=== PATIENT | female | born 1945 | race Caucasian/White ===

== ENCOUNTER 2018-11-01 13:31 | Outpatient (REF) | payer MEDICARE, BC, SELFPAY ==
[2018-11-01 19:59] LABS: HCT 42.8 % (36.0-46.0); HGB 14.5 g/dL (12.0-15.5); Mean Corp. HGB Concentration 33.9 g/dL (32.0-36.0); Mean Corpuscular Hemoglobin 29.3 pg (27.0-33.0); Mean Corpuscular Volume 86.5 fL (80-95); Mean Platelet Volume 10.6 fL (8.0-11.0); Platelet Count 218 x1000/uL (130-400); RBC 4.95 m/cumm (4.00-5.20); White Blood Cell Count 5.29 k/cumm (4.4-10.8)
[2018-11-01 20:22] LABS: ALT 24 U/L (12-78); AST 18 U/L (15-37); Albumin 3.8 g/dL (3.4-5.0); Alkaline Phosphatase 101 U/L (46-116); Anion Gap 6.8 mmol/L (3-11); BUN 17 mg/dL (7-18); Bilirubin, Total 0.4 mg/dL (0.2-1.0); CO2 33.2 mmol/L (21.0-32.0); CREATININE 0.72 mg/dL (0.55-1.02); Calcium 9.5 mg/dL (8.5-10.1); Chloride 99 mmol/L (98-107); Glucose 102 mg/dL (70-100); LDL CHOLESTEROL 66 mg/dL (<100); Potassium 3.5 mmol/L (3.5-5.1); Sodium 139 mmol/L (136-145); TSH 1.02 uIU/mL (0.358-3.74); Total Protein 7.1 g/dL (6.4-8.2)
== END 2018-11-01 13:51 ==
LOC: NCHCN 13:31
PROVIDERS: PCP Internal Medicine; Visit Provider Internal Medicine
DX: I10 Essential (primary) hypertension (principal); G35 Multiple sclerosis
CPT/HCPCS: 80053; 83721; 85027; 84443

== ENCOUNTER 2019-09-21 14:51 | Outpatient (REF) | payer MEDICARE, BC, SELFPAY ==
[2019-09-21 20:26] LABS: HCT 41.9 % (36.0-46.0); HGB 14.1 g/dL (12.0-15.5); Mean Corp. HGB Concentration 33.7 g/dL (32.0-36.0); Mean Corpuscular Hemoglobin 29.4 pg (27.0-33.0); Mean Corpuscular Volume 87.3 fL (80-95); Mean Platelet Volume 10.6 fL (8.0-11.0); Platelet Count 269 x1000/uL (130-400); RBC Distribution Width 13.3 % (11.7-14.6); White Blood Cell Count 6.07 k/cumm (4.4-10.8)
[2019-09-21 20:46] LABS: Anion Gap 8.3 mmol/L (3-11); BUN 17 mg/dL (7-18); CO2 29.7 mmol/L (21.0-32.0); Calcium 8.8 mg/dL (8.5-10.1); Chloride 101 mmol/L (98-107); Glucose 133 mg/dL (74-106); Potassium 3.5 mmol/L (3.5-5.1); Sodium 139 mmol/L (136-145); TSH 1.04 uIU/mL (0.36-3.74)
[2019-09-21 20:57] LABS: LDL CHOLESTEROL 70 mg/dL (<100)
== END 2019-09-21 15:11 ==
LOC: NCHCN 14:51
PROVIDERS: PCP Internal Medicine; Visit Provider Internal Medicine
DX: I10 Essential (primary) hypertension (principal); F17.210 Nicotine dependence, cigarettes, uncomplicated; J44.9 Chronic obstructive pulmonary disease, unspecified; G35 Multiple sclerosis
CPT/HCPCS: 80048; 83721; 85027; 84443

== ENCOUNTER 2021-03-28 18:53 | Outpatient (REF) | payer MEDICARE, BC, SELFPAY ==
[2021-03-28 18:53] LABS: ALT 17 U/L (14-59); Anion Gap 9.6 mmol/L (3-11); BUN 10 mg/dL (7-18); CO2 28.4 mmol/L (21.0-32.0); CREATININE 0.7 mg/dL (0.55-1.02); Calcium 9.4 mg/dL (8.5-10.1); Chloride 100 mmol/L (98-107); Glucose 97 mg/dL (74-106); LDL CHOLESTEROL 59 mg/dL (<100); Sodium 138 mmol/L (136-145)
[2021-03-28 19:14] LABS: HCT 42.2 % (36.0-46.0); HGB 14.2 g/dL (11.2-15.7); MCH 29.3 pg (27.0-33.0); MCHC 33.6 % (32.0-36.0); MPV 10.4 fL (8.0-11.0); Platelet Count 330 10^3/uL (130-400); RBC 4.85 10^6/uL (3.93-5.22); RDW 12.6 % (11.7-14.6); RDW-SD 40.4 fL
== END 2021-03-28 18:54 | disposition home or self-care (01) ==
LOC: NCHCN 18:53
PROVIDERS: PCP Internal Medicine; Visit Provider Internal Medicine
DX: I10 Essential (primary) hypertension (principal); R53.83 Other fatigue; E78.5 Hyperlipidemia, unspecified
CPT/HCPCS: 80048; 83721; 85027; 84460

== ENCOUNTER 2022-03-03 18:07 | Outpatient (REF) | payer MEDICARE, BC, SELFPAY ==
[2022-03-03 19:25] LABS: Bilirubin Negative (Negative); Blood Moderate (Negative); Clarity Sl Cloudy (Clear); Glucose Negative (Negative); Ketones Negative (Negative); Leukocyte Esterase Small (Negative); Nitrite Negative (Negative); Specific Gravity >= 1.030 (1.005-1.025); Urobilinogen 0.2 EU/dL (Up TO 0.2); pH 5.5 (5-8)
[2022-03-03 19:32] LABS: Bacteria Moderate HPF (Negative); C & S Indicated? Yes; Casts Negative LPF (Negative); Crystals Negative HPF (Negative); Epithelial Cells Rare HPF (Negative); Mucus Negative (Negative); Other Cells Rare Renal (Negative); WBC 20-50 HPF (0-5)
== END 2022-03-03 18:08 | disposition home or self-care (01) ==
LOC: NCHCN 18:07
PROVIDERS: PCP Internal Medicine; Visit Provider Nurse Practitioner Family
DX: R30.0 Dysuria (principal)
CPT/HCPCS: 87077; 81003; 81015; 87086; 87186

== ENCOUNTER 2022-10-15 18:37 | Outpatient (REF) | payer MEDICARE, BC, SELFPAY ==
[2022-10-15 20:16] LABS: ALT 19 U/L (14-59); Anion Gap 7.6 mmol/L (3-11); BUN 23 mg/dL (7-18); CO2 28.4 mmol/L (21.0-32.0); CREATININE 0.8 mg/dL (0.55-1.02); Calcium 9.4 mg/dL (8.5-10.1); Calculated LDL 41 mg/dL (<100); Chloride 104 mmol/L (98-107); Cholesterol 125 mg/dL (<200); Estimated GFR 75.84 (mL/min/1.73m2); Glucose 122 mg/dL (74-106); HDL Cholesterol 51 mg/dL (40-60); Potassium 3.8 mmol/L (3.5-5.1); Sodium 140 mmol/L (136-145); TSH 1.14 uIU/mL (0.36-3.74); Triglyceride 167 mg/dL (<150)
[2022-10-15 20:47] LABS: Creatine Kinase 141 U/L (26-192)
== END 2022-10-15 18:38 | disposition home or self-care (01) ==
LOC: NCHCN 18:37
PROVIDERS: PCP Internal Medicine; Visit Provider Internal Medicine
DX: I10 Essential (primary) hypertension (principal); E78.5 Hyperlipidemia, unspecified
CPT/HCPCS: 80048; 80061; 82550; 84443; 84460

== ENCOUNTER 2023-09-28 18:30 | Outpatient (REF) | payer MEDICARE, BC, SELFPAY ==
[2023-09-28 19:34] LABS: HCT 47.1 % (36.0-46.0); HGB 16.4 g/dL (11.2-15.7); MCH 29.3 pg (27.0-33.0); MCHC 34.8 % (32.0-36.0); MCV 84 fL (80-95); MPV 9.7 fL (8.0-11.0); Platelet Count 587 10^3/uL (130-400); RBC 5.59 10^6/uL (3.93-5.22); RDW-SD 39.8 fL; WBC 14.33 10^3/uL (4.4-10.8)
[2023-09-28 20:04] LABS: ALT 30 U/L (14-59); AST 16 U/L (15-37); Albumin 3.8 g/dL (3.4-5.0); Alkaline Phosphatase 119 U/L (46-116); Anion Gap 9.9 mmol/L (3-11); BUN 31 mg/dL (7-18); Bilirubin, Total 0.6 mg/dL (0.2-1.0); CO2 26.1 mmol/L (21.0-32.0); Calcium 9.8 mg/dL (8.5-10.1); Calculated LDL 42 mg/dL (<100); Chloride 99 mmol/L (98-107); Cholesterol 121 mg/dL (<200); Estimated GFR 57.66 (mL/min/1.73m2); Glucose 149 mg/dL (74-106); HDL Cholesterol 50 mg/dL (40-60); Potassium 4.4 mmol/L (3.5-5.1); Sodium 135 mmol/L (136-145); Total Protein 7.5 g/dL (6.4-8.2); Triglyceride 146 mg/dL (<150)
== END 2023-09-28 18:31 | disposition home or self-care (01) ==
LOC: NCHCN 18:30
PROVIDERS: PCP Internal Medicine; Visit Provider Internal Medicine
DX: E78.5 Hyperlipidemia, unspecified (principal); J10.08 Influenza due to other identified influenza virus with other specified pneumonia
CPT/HCPCS: 80053; 80061; 85027

== ENCOUNTER 2023-12-18 07:40 | Day surgery (SDC) | payer MEDICARE, BC, SELFPAY ==
--- NOTE | 2023-12-18 06:30 | ANES.PREOP_ITS ---
General Info Date of Service Date Performed: 12/18/23 Height: 4 ft 11 in Weight: 70.307 kg Body Mass Index (BMI): 31.3 Surgical Procedure: Operation Date: 12/18/23 10:40 Proposed Procedure Side Surgeon p Cataract Extraction with IOL Implant Right Jg Galaviz MD Meds Allergies and Home Medications Allergies Allergy/AdvReac Type Severity Reaction Status Date / Time nickel Allergy Unknown Other (See Uncoded 12/18/23 08:25 Comment) Home Medication Medication Instructions Recorded albuterol sulfate 90 mcg/actuation 1 inh inhalation Q4H PRN 12/15/23 aerosol inhaler aspirin 81 mg capsule 81 mg PO DAILY 12/15/23 atorvastatin 80 mg tablet 80 mg PO DAILY 12/15/23 diltiazem HCl 120 mg 120 mg PO DAILY 12/15/23 capsule,extended release 24 hr hydrochlorothiazide 12.5 mg tablet 12.5 mg PO DAILY 12/15/23 losartan 50 mg tablet 50 mg PO DAILY 12/15/23 nystatin 100,000 unit/gram topical 1 applic topical TID 12/15/23 ointment ofloxacin 0.3 % eye drops 1 drp ophthalmic (eye) QID 12/15/23 umeclidinium 62.5 mcg-vilanterol 1 inh inhalation DAILY 12/15/23 25 mcg/actuation powdr for inhalation (Anoro Ellipta) Current Visit Medications: Current Medications Generic Name Dose Route Start Last Admin Trade Name Freq PRN Reason Stop Dose Admin Acetaminophen 1,000 mg 12/18/23 06:00 Acetaminophen 500 Mg Tab PO 01/17/24 05:59 Q4H PRN PRN Balanced Salt Solution 500 ml 12/18/23 06:00 Balanced Salt Soln.-Plus 500 Ml Bag OP 01/17/24 05:59 DIRECTED MILADY Miscellaneous Medication 0 ml 12/18/23 06:00 Prednisolone 1%, Moxifloxacin 0.5%, Bromfenac 0.09% 5ml Btl OD 01/17/24 05:59 DIRECTED MILADY Miscellaneous Medication 0 ml 12/18/23 06:00 Tropicam./Phenyleph. 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 states in September she had COVID, has appointment 02/2024 for ECHO Cough Fatigue Iliotibial band syndrome Low back pain Osteoarthritis of knee Actinic keratitis Pustular psoriasis of palms and soles Urinary tract infectious disease COPD (chronic obstructive pulmonary disease) Aortic stenosis Essential hypertension Multiple sclerosis Obesity Hyperlipidemia Disorder of adrenal gland Benign neoplasm of colon Basal cell carcinoma Surgical History Surgical History History of colonoscopy Tobacco Smoking/Tobacco Use Status: Former Tobacco Use Alcohol Alcohol Intake: never Substance Use Substance use: Never Substance use type: does not use Vital Signs and Lab Results Vital Signs Most Recent Vital Signs in EMR: Temp Pulse Resp BP Pulse Ox 36.5 C 73 16 169/86 H 96 12/18/23 08:11 12/18/23 08:11 12/18/23 08:11 12/18/23 08:11 12/18/23 08:11 Lab Results Blood Type / Crossmatch: No Data to Display Complete Blood Count: No Data to Display Complete Metabolic Panel: No Data to Display Liver Function Panel: No Data to Display Coagulation Panel: No Data to Display Cardiac Panel: No Data to Display Arterial Blood Gas: No Data to Display Venous Blood Gas: No Data to Display Pancreas Panel: No Data to Display Thyroid Panel: No Data to Display Infectious Disease: No Data to Display Blood Cultures: No Data to Display Toxicology Panel: No Data to Display Imaging and Studies Imaging and Studies Study information below may be from another EMR and interpreted by another provider. Please see original notes in EMR for more complete details. Stress Test Summary: 01/25: normal. no defects. EF 55%. Echocardiogram Summary: 10/03: LVEF 70%. severe basal septal hypertrophy, dynamic LVOT peak gradient 101 mmhg, anterior motion of MC with obstruction.. moderate MR. grade II diastolic dysfxn. Anesthesia Assessment and Plan Anesthesia History Personal History: No History of Anesthesia Complications Family History: No Family History of Anesthesia Complications Exercise Tolerance Exercise Tolerance: Metabolic Equivalents>4 Cardiac & Pulmonary Exam Cardiac Exam: Heart Murmur Present Pulmonary Exam: Clear Bilateral Breath Sounds Implantable Cardiac Device Does patient have a Pacemaker or an ICD?: No Airway Exam Known Difficult Airway: No Mallampati Class: 3 Mouth Opening: Normal (> 3cm) Thyromental Distance: Greater than 3 cm Neck Range of Motion: Full ROM Neck Circumference: Normal Teeth Condition: Normal Dentition ASA Classification ASA Score: ASA 3 Emergency Case?: No NPO Status NPO Status: NPO Clears >2 hours, Solids >8 hours Anesthesia Plan Resuscitation Status: Full Code Anesthesia Technique: MAC Anesthesia Airway Planned: Natural Airway Monitors Used: Standard Monitors Preoperative Comments:: 77 yo female for cataract removal. No MKO given her cardiac history. Sig PMHx: HTN, chest pain (with both exertion and rest, she is being followed. ? due to her LVOT. no intervention being planned at this time), COPD, former smoker, MS
[2023-12-18 08:11] VITALS: BP 169/86; PULSE 73; RESP 16; TEMP 36.5; O2SAT 96
[2023-12-18 08:45] VITALS: BMI 31.3
[2023-12-18] MEDS: Tetracaine 0.5% 4 ML BTL OD (09:38)
[2023-12-18] MEDS: Povidone-Iodine Ophth 30 ML BTL (09:38)
[2023-12-18] MEDS: Balanced Salt Soln.-PLUS 500 ML BAG OP (09:47)
[2023-12-18] MEDS: Duovisc Viscoelastic System EACH 1 EACH (09:47)
[2023-12-18] MEDS: Lidocaine 1% Pres-Free 5 ML VIAL (09:48)
--- NOTE | 2023-12-18 10:08 | ROE_ITS ---
Date of service: 12/18/23 Time of Service: 10:08 Operative Note Operative Note DATE OF PROCEDURE: 12/18/23 PRE-OP DIAGNOSIS: Nuclear/cortical cataract, right eye POST-OP DIAGNOSIS: same PROCEDURE: Cataract extraction using phacoemulsification with intraocular lens implant, right eye SURGEON: Jg Galaviz ANESTHESIA TYPE: Local By Surgeon and MAC Refer to Anesthesia Record ESTIMATED BLOOD LOSS: 0 PATHOLOGY: none sent COMPLICATIONS: None Patient was transported to: same day Patient's condition: stable Implants: William Clareon [id number] Indications: Progressive decreased vision due to cataract, right eye Procedure Description: CATARACT SURGERY OPERATIVE REPORT PREOPERATIVE DIAGNOSIS: Nuclear/cortical cataract, right eye POSTOPERATIVE DIAGNOSIS: Same OPERATION: Cataract extraction using phacoemulsification with posterior chamber intraocular lens implant, right eye. IOL: IOL Pricing/Signage Team Member/Model: William Clareon [id number] IOL Power: + 19.5 diopters IOL Serial Number: [id number] Optic Diameter: 6.0mm Haptic/Overall Diameter: 13.0mm PHACO INFO: WilliamLeverurion Vision System with OZil and Active Fluidics Cumulative Dispersed Energy (CDE): 7.14 seconds SURGEON: Jg Galaviz MD, VIPUL ANESTHESIA: Monitored Anesthesia Care (MAC), with local sub-tenon's anesthetic infiltration COMPLICATIONS: None SPECIMENS: None INDICATIONS FOR PROCEDURE: The patient is a 77-year-old lady with history of diminished visual acuity in her right eye secondary to the development of significant nuclear/cortical cataract. She is significantly symptomatic that she desires cataract surgery and attempt to improve and maximize her vision. The option of cataract surgery was offered to the patient and she wished to proceed. See office notes for detailed information. PROCEDURE: The correct surgical eye was identified and marked as the right eye and the pupil was dilated in the preoperative area using mydriatics and cycloplegics. The dilated pupil size was 6.0 mm. The patient elected to proceed without oral sedation. The patient was brought to the operating room where cardiopulmonary monitoring was instituted and surgical time-out was performed, confirming the correct operative eye and IOL power. Topical anesthesia was administered and ophthalmic povidone-iodine 5% was instilled into the conjunctival fornices. The matt-ocular area was prepped with Betadine 10% solution and draped in the usual sterile fashion for intraocular surgery, including an aperture drape. A Tegaderm transparent film dressing was cut in half and used to cover the lashes and lid margins. Care was taken to sequester the lashes and lid margins under the Tegaderm dressing. A lid speculum was placed between the lids of the operative eye and the William LuxOR Revalia operating microscope was maneuvered into position. Chris scissors were then used to make a conjunctival buttonhole approximately 6mm posterior to the limbus in the inferonasal quadrant. Blunt dissection was carried out to expose bare sclera, and a blunt-tipped sub-tenon?s anesthesia cannula was introduced and passed posteriorly along the globe where non- preserved plain lidocaine was injected into posterior sub-Tenon?s space. A sideport knife was used to make a paracentesis port. Intraocular phenylephrine/lidocaine was injected into the anterior chamber. The anterior chamber was then filled with viscoelastic. A keratome knife was used to construct a two--plane clear corneal tunnel extending 2.0mm into clear cornea. A flap was raised on the anterior capsule and capsulorhexis forceps were used to complete a continuous curvilinear capsulorhexis of 5.5 mm. Balanced salt solution was then used to perform cortical cleaving hydrodissection and nuclear hydrodelineation until the lens could be freely rotated within the capsular bag. The lens nucleus was then disassembled and removed within the capsular bag and iris plane using phacoemulsification. Residual cortical material was removed using the I/A handpiece. The posterior capsule was carefully polished to remove as much residual lens epithelial cells as safely possible. The capsular bag was then inflated and the anterior chamber deepened with cohesive viscoelastic. The lens implant described above was inserted into the capsular bag using the William Autonome Injector. A Kuglen hook was used to dial the IOL into position. Residual viscoelastic was then removed first from posterior to the IOL, then from the anterior chamber using the I/A handpiece. The lens implant was noted to center nicely within the capsular bag. The incisions were stromally hydrated, and the anterior chamber was reformed using BSS. Then 0.5cc of moxifloxacin 1.0mg/ml were injected into the capsular bag and anterior chamber. The incisions were checked with a Weck spear and found to be secure. Several drops of ophthalmic povidone-iodine 5% were then applied to the eye followed by two drops of combination steroid/NSAID/antibiotic solution. The drapes were removed and a clear plastic protective eye shield was placed over the eye. The patient was then returned to [facility] Surgery in stable condition.
--- NOTE | 2023-12-18 10:08 | W.PM.DSUDISC ---
Date of service: 12/18/23 Time of Service: 10:08 Discharge Plan Disposition Patient Disposition: Home Discharge Details Attending Provider: Jg Galaviz Primary Care Provider: Armando Villafana Home Meds and New Rx's Prescriptions: No Action albuterol sulfate 90 mcg/actuation HFA aerosol inhaler 1 inh inhalation Q4H PRN Anoro Ellipta 62.5-25 mcg/actuation blister with device 1 inh inhalation DAILY aspirin 81 mg capsule 81 mg PO DAILY atorvastatin 80 mg tablet 80 mg PO DAILY Patient Comments: TAKE ONE TABLET BY MOUTH EVERY DAY diltiazem HCl 120 mg capsule,extended release 24hr 120 mg PO DAILY Patient Comments: TAKE ONE CAPSULE BY MOUTH EVERY DAY hydrochlorothiazide 12.5 mg tablet 12.5 mg PO DAILY Patient Comments: TAKE ONE TABLET BY MOUTH EVERY DAY losartan 50 mg tablet 50 mg PO DAILY Patient Comments: TAKE ONE TABLET BY MOUTH EVERY DAY nystatin 100,000 unit/gram ointment 1 applic TOPICAL TID Patient Comments: APPLY TOPICALLY 3 TIMES A DAY TO AFFECTED AREA ofloxacin 0.3 % drops 1 drp ophthalmic (eye) QID Patient Comments: INSTILL 1 DROP INTO AFFECTED EYE(S) 4 TIMES A DAY FOR 7 DAYS. NO EYERUBBING, NO CONTACT LENSES Discharge Instructions Stand Alone Forms: [facility] Post-Op CataractMandeep ([facility]U) Discharge Orders Discharge Orders: Discharge Order (Routine); Ordered 12/18/23 Ordered By: Jg Galaviz DS: Diagnosis Discharge Diagnosis (1) Cortical age-related cataract, right eye: Status: Resolved (2) Nuclear age-related cataract, right eye: Status: Resolved
[2023-12-18 10:10] VITALS: BP 139/80; PULSE 77; RESP 18; TEMP 36.6; O2SAT 97
--- NOTE | 2023-12-18 10:19 | W.ANESPOSTOP ---
Postoperative Evaluation Date, Time and Location Date Performed: 12/18/23 Time Performed: 10:19 Patient Location: Day Surgery Unit Vital Signs Most Recent Imported Vital Signs: Most Recent Vital Signs Temp Pulse Resp BP Pulse Ox 36.6 C 77 18 139/80 97 12/18/23 10:10 12/18/23 10:10 12/18/23 10:10 12/18/23 10:10 12/18/23 10:10 Pain Score Most Recent Pain Score: Most Recent Pain Score Pain Level 0 12/18/23 10:10 Assessment Mental Status: Awake (Alert & Oriented to Patient Baseline) Airway and Respiratory Function: Patent airway with normal (patient baseline) respiratory exam Cardiovascular Function: Hemodynamically Stable Hydration Status: Adequately Hydrated Nausea & Vomiting: No Nausea or Vomiting Pain: Pt. Denies Any Pain Peripheral Nerve Block: Patient did not receive a nerve block
== END 2023-12-18 10:33 | disposition home or self-care (01) ==
PROVIDERS: PCP Internal Medicine; Visit Provider Ophthalmology
PROC: (CPT 66984; principal; 2023-12-18 10:30)
DX: H25.011 Cortical age-related cataract, right eye (principal); H25.11 Age-related nuclear cataract, right eye; J44.9 Chronic obstructive pulmonary disease, unspecified; I10 Essential (primary) hypertension; R07.9 Chest pain, unspecified
CPT/HCPCS: 66984; 00123; V2632; J2003

== ENCOUNTER 2024-01-01 09:18 | Day surgery (SDC) | payer MEDICARE, BC, SELFPAY ==
[2024-01-01 09:58] VITALS: BP 139/71; PULSE 67; RESP 16; TEMP 36.5; O2SAT 96
--- NOTE | 2024-01-01 10:07 | ANES.PREOP_ITS ---
General Info Date of Service Date Performed: 01/01/24 Height: 5 ft Weight: 77.1 kg Body Mass Index (BMI): 33.2 Surgical Procedure: Operation Date: 01/01/24 12:40 Proposed Procedure Side Surgeon p Cataract Extraction with IOL Implant Left Jg Galaviz MD Meds Allergies and Home Medications Allergies Allergy/AdvReac Type Severity Reaction Status Date / Time nickel Allergy Unknown Other (See Uncoded 01/01/24 10:06 Comment) Home Medication Medication Instructions Recorded albuterol sulfate 90 mcg/actuation 1 inh inhalation Q4H PRN 12/15/23 aerosol inhaler aspirin 81 mg capsule 81 mg PO DAILY 12/15/23 atorvastatin 80 mg tablet 80 mg PO DAILY 12/15/23 diltiazem HCl 120 mg 120 mg PO HS 12/15/23 capsule,extended release 24 hr hydrochlorothiazide 12.5 mg tablet 12.5 mg PO DAILY 12/15/23 losartan 50 mg tablet 50 mg PO DAILY 12/15/23 nystatin 100,000 unit/gram topical 1 applic topical TID 12/15/23 ointment ofloxacin 0.3 % eye drops 1 drp ophthalmic (eye) QID 12/15/23 umeclidinium 62.5 mcg-vilanterol 1 inh inhalation DAILY 12/15/23 25 mcg/actuation powdr for inhalation (Anoro Ellipta) Current Visit Medications: Current Medications Generic Name Dose Route Start Last Admin Trade Name Freq PRN Reason Stop Dose Admin Acetaminophen 1,000 mg 01/01/24 06:00 Acetaminophen 500 Mg Tab PO 01/31/24 05:59 Q4H PRN PRN Balanced Salt Solution 500 ml 01/01/24 06:00 Balanced Salt Soln.-Plus 500 Ml Bag OP 01/31/24 05:59 DIRECTED MILADY Miscellaneous Medication 0 ml 01/01/24 06:00 Prednisolone 1%, Moxifloxacin 0.5%, Bromfenac 0.09% 5ml Btl OS 01/31/24 05:59 DIRECTED MILADY Miscellaneous Medication 0 ml 01/01/24 06:00 Tropicam./Phenyleph. 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 states in September she had COVID, has appointment 02/2024 for ECHO Cough Fatigue Iliotibial band syndrome Low back pain Osteoarthritis of knee Actinic keratitis Pustular psoriasis of palms and soles Urinary tract infectious disease COPD (chronic obstructive pulmonary disease) Aortic stenosis Essential hypertension Multiple sclerosis Obesity Hyperlipidemia Disorder of adrenal gland Benign neoplasm of colon Basal cell carcinoma Surgical History Surgical History History of colonoscopy Tobacco Smoking/Tobacco Use Status: Former Tobacco Use Alcohol Alcohol Intake: never Substance Use Substance use: Never Substance use type: does not use Vital Signs and Lab Results Vital Signs Most Recent Vital Signs in EMR: Most Recent Vital Signs Temp Pulse Resp BP Pulse Ox 36.5 C 67 16 139/71 96 01/01/24 09:58 01/01/24 09:58 01/01/24 09:58 01/01/24 09:58 01/01/24 09:58 Lab Results Blood Type / Crossmatch: No Data to Display Complete Blood Count: No Data to Display Complete Metabolic Panel: No Data to Display Liver Function Panel: No Data to Display Coagulation Panel: No Data to Display Cardiac Panel: No Data to Display Arterial Blood Gas: No Data to Display Venous Blood Gas: No Data to Display Pancreas Panel: No Data to Display Thyroid Panel: No Data to Display Infectious Disease: No Data to Display Blood Cultures: No Data to Display Toxicology Panel: No Data to Display Imaging and Studies Imaging and Studies Study information below may be from another EMR and interpreted by another provider. Please see original notes in EMR for more complete details. Stress Test Summary: 01/25: normal. no defects. EF 55%. Echocardiogram Summary: 10/03: LVEF 70%. severe basal septal hypertrophy, dynamic LVOT peak gradient 101 mmhg, anterior motion of MC with obstruction.. moderate MR. grade II diastolic dysfxn. Anesthesia Assessment and Plan Anesthesia History Personal History: No History of Anesthesia Complications Family History: No Family History of Anesthesia Complications Exercise Tolerance Exercise Tolerance: Metabolic Equivalents>4 Pertinent Negatives Pertinent Negatives: No Symptoms of GERD Cardiac & Pulmonary Exam Cardiac Exam: Normal S1/S2 Heart Sounds Pulmonary Exam: Clear Bilateral Breath Sounds Implantable Cardiac Device Does patient have a Pacemaker or an ICD?: No Airway Exam Known Difficult Airway: No Mallampati Class: 3 Mouth Opening: Normal (> 3cm) Thyromental Distance: Greater than 3 cm Neck Range of Motion: Full ROM Neck Circumference: Normal Teeth Condition: Normal Dentition ASA Classification ASA Score: ASA 3 Emergency Case?: No NPO Status NPO Status: NPO Clears >2 hours, Solids >8 hours Anesthesia Plan Resuscitation Status: Full Code Anesthesia Technique: MAC Anesthesia Airway Planned: Natural Airway Monitors Used: Standard Monitors
[2024-01-01 10:08] VITALS: BMI 33.2
[2024-01-01] MEDS: Duovisc Viscoelastic System EACH 1 EACH (11:42)
[2024-01-01] MEDS: Lidocaine 1% Pres-Free 5 ML VIAL (11:43)
[2024-01-01] MEDS: Povidone-Iodine Ophth 30 ML BTL (11:45)
[2024-01-01] MEDS: Balanced Salt Soln.-PLUS 500 ML BAG OP (11:46)
[2024-01-01] MEDS: Tetracaine 0.5% 4 ML BTL OS (11:48)
[2024-01-01 11:56] VITALS: BP 133/82; PULSE 67; RESP 16; TEMP 36.6; O2SAT 97
--- NOTE | 2024-01-01 11:56 | W.PM.DSUDISC ---
Date of service: 01/01/24 Time of Service: 11:56 Discharge Plan Disposition Patient Disposition: Home Discharge Details Attending Provider: Jg Galaviz Primary Care Provider: Armando Villafana Home Meds and New Rx's Prescriptions: No Action albuterol sulfate 90 mcg/actuation HFA aerosol inhaler 1 inh inhalation Q4H PRN Anoro Ellipta 62.5-25 mcg/actuation blister with device 1 inh inhalation DAILY aspirin 81 mg capsule 81 mg PO DAILY atorvastatin 80 mg tablet 80 mg PO DAILY Patient Comments: TAKE ONE TABLET BY MOUTH EVERY DAY diltiazem HCl 120 mg capsule,extended release 24hr 120 mg PO HS Patient Comments: TAKE ONE CAPSULE BY MOUTH EVERY DAY hydrochlorothiazide 12.5 mg tablet 12.5 mg PO DAILY Patient Comments: TAKE ONE TABLET BY MOUTH EVERY DAY losartan 50 mg tablet 50 mg PO DAILY Patient Comments: TAKE ONE TABLET BY MOUTH EVERY DAY nystatin 100,000 unit/gram ointment 1 applic TOPICAL TID Patient Comments: APPLY TOPICALLY 3 TIMES A DAY TO AFFECTED AREA ofloxacin 0.3 % drops 1 drp ophthalmic (eye) QID Patient Comments: INSTILL 1 DROP INTO AFFECTED EYE(S) 4 TIMES A DAY FOR 7 DAYS. NO EYERUBBING, NO CONTACT LENSES Discharge Instructions Stand Alone Forms: [facility] Post-Op CataractMandeep ([facility]U) Discharge Orders Discharge Orders: Discharge Order (Routine); Ordered 01/01/24 Ordered By: Jg Galaviz DS: Diagnosis Discharge Diagnosis (1) Cortical age-related cataract, left eye: Status: Resolved (2) Nuclear age-related cataract, left eye: Status: Resolved
--- NOTE | 2024-01-01 11:57 | ROE_ITS ---
Date of service: 01/01/24 Time of Service: 11:57 Operative Note Operative Note DATE OF PROCEDURE: 01/01/24 PRE-OP DIAGNOSIS: Nuclear/cortical cataract, left eye POST-OP DIAGNOSIS: same PROCEDURE: Cataract extraction using phacoemulsification with intraocular lens implant, left eye SURGEON: Jg Galaviz ANESTHESIA TYPE: Local By Surgeon and MAC Refer to Anesthesia Record PATHOLOGY: none sent COMPLICATIONS: None Patient was transported to: same day Patient's condition: stable Implants: William Clareon [id number] Indications: Progressive decreased vision due to cataract, left eye Procedure Description: CATARACT SURGERY OPERATIVE REPORT PREOPERATIVE DIAGNOSIS: Nuclear/cortical cataract, left eye POSTOPERATIVE DIAGNOSIS: Same OPERATION: Cataract extraction using phacoemulsification with posterior chamber intraocular lens implant, left eye. IOL: IOL Cataloging Assistant/Model: William Clareon [id number] IOL Power: + 19.0 diopters IOL Serial Number: [id number] Optic Diameter: 6.0mm Haptic/Overall Diameter: 13.0mm PHACO INFO: [employer] developersurion Vision System with OZil and Active [employer]uidics Cumulative Dispersed Energy (CDE): 10.71 seconds SURGEON: Jg Galaviz MD, VIPUL ANESTHESIA: Monitored Anesthesia Care (MAC), with local sub-tenon's anesthetic infiltration COMPLICATIONS: None SPECIMENS: None INDICATIONS FOR PROCEDURE: The patient is a 78-year-old lady with history of diminished visual acuity in her left eye secondary to the development of nuclear/cortical cataract. She has previously undergone cataract surgery in her right eye and is doing well postoperatively. She now presents for cataract surgery in the left eye. See office notes for detailed information. PROCEDURE: The correct surgical eye was identified and marked as the left eye and the pupil was dilated in the preoperative area using mydriatics and cycloplegics. The dilated pupil size was 7.0 mm. The patient elected to proceed without oral sedation. The patient was brought to the operating room where cardiopulmonary monitoring was instituted and surgical time-out was performed, confirming the correct operative eye and IOL power. Topical anesthesia was administered and ophthalmic povidone-iodine 5% was instilled into the conjunctival fornices. The matt-ocular area was prepped with Betadine 10% solution and draped in the usual sterile fashion for intraocular surgery, including an aperture drape. A Tegaderm transparent film dressing was cut in half and used to cover the lashes and lid margins. Care was taken to sequester the lashes and lid margins under the Tegaderm dressing. A lid speculum was placed between the lids of the operative eye and the William LuxOR Revalia operating microscope was maneuvered into position. Chris scissors were then used to make a conjunctival buttonhole approximately 6mm posterior to the limbus in the inferonasal quadrant. Blunt dissection was carried out to expose bare sclera, and a blunt-tipped sub-tenon?s anesthesia cannula was introduced and passed posteriorly along the globe where non- preserved plain lidocaine was injected into posterior sub-Tenon?s space. A sideport knife was used to make a paracentesis port. Intraocular phenylephrine/lidocaine was injected into the anterior chamber. The anterior chamber was then filled with viscoelastic. A keratome knife was used construct a two-plane clear corneal tunnel extending 2.0mm into clear cornea. A flap was raised on the anterior capsule and capsulorhexis forceps were used to complete a continuous curvilinear capsulorhexis of 5.0 mm. Balanced salt solution was then used to perform cortical cleaving hydrodisse ction and nuclear hydrodelineation until the lens could be freely rotated within the capsular bag. The lens nucleus was then disassembled and removed within the capsular bag and iris plane using phacoemulsification. Residual cortical material was removed using the irrigation/aspiration handpiece. The posterior capsule was carefully polished to remove as much residual lens epithelial cells as safely possible. The capsular bag was then inflated and the anterior chamber deepened with viscoelastic. The lens implant described above was inserted into the capsular bag using the William Autonome Injector. A Kuglen hook was used to dial the IOL into position. Residual viscoelastic was then removed first from posterior to the IOL, then from the anterior chamber using the I/A handpiece. The lens implant was noted to center nicely within the capsular bag. The incisions were stromally hydrated, and the anterior chamber was reformed using BSS. Then 0.5cc of moxifloxacin 1.0mg/ml were injected into the capsular bag and anterior chamber. The incisions were checked with a Weck spear and found to be secure. Several drops of ophthalmic povidone-iodine 5% were then applied to the eye followed by two drops of combination steroid/NSAID/antibiotic solution. The drapes were removed and a clear plastic protective eye shield was placed over the eye. The patient was then returned to [facility] Day Surgery in stable condition.
--- NOTE | 2024-01-01 12:14 | W.ANESPOSTOP ---
Postoperative Evaluation Date, Time and Location Date Performed: 01/01/24 Time Performed: 12:08 Patient Location: Day Surgery Unit Vital Signs Most Recent Imported Vital Signs: Most Recent Vital Signs Temp Pulse Resp BP Pulse Ox 36.6 C 67 16 133/82 97 01/01/24 11:56 01/01/24 11:56 01/01/24 11:56 01/01/24 11:56 01/01/24 11:56 Pain Score Most Recent Pain Score: Most Recent Pain Score Pain Level 0 01/01/24 11:56 Assessment Mental Status: Awake (Alert & Oriented to Patient Baseline) Airway and Respiratory Function: Patent airway with normal (patient baseline) respiratory exam Cardiovascular Function: Hemodynamically Stable Hydration Status: Adequately Hydrated Nausea & Vomiting: No Nausea or Vomiting Pain: Pt. Denies Any Pain Peripheral Nerve Block: Patient did not receive a nerve block
== END 2024-01-01 12:15 | disposition home or self-care (01) ==
PROVIDERS: PCP Internal Medicine; Visit Provider Ophthalmology
PROC: (CPT 66984; principal; 2024-01-01 12:30)
DX: H25.012 Cortical age-related cataract, left eye (principal); H25.12 Age-related nuclear cataract, left eye; Z98.41 Cataract extraction status, right eye
CPT/HCPCS: 66984; 00123; V2632; J2003

== ENCOUNTER 2024-11-22 15:55 | Outpatient (REF) | payer MEDICARE, BC, SELFPAY ==
[2024-11-22 19:38] LABS: Abs Immature Grans 0.04 10^3/uL (0.0-0.06); Absolute Basophil Count 0.09 10^3/uL (0.0-0.2); Absolute Eosinophil Count 0.71 10^3/uL (0.0-0.7); Absolute Lymphocyte Count 1.66 10^3/uL (1.2-3.4); Absolute Monocyte Count 0.92 10^3/uL (0.1-0.8); Absolute Neutrophil Count 5.25 10^3/uL (1.2-6.7); Eosinophils % 8.2 %; HCT 37.5 % (36.0-46.0); HGB 11.7 g/dL (11.2-15.7); Immature Grans % 0.5 %; Lymphocytes % 19.1 %; MCH 24.3 pg (27.0-33.0); MCHC 31.2 % (32.0-36.0); MCV 78 fL (80-95); Monocytes % 10.6 %; Neutrophils % 60.6 %; Platelet Count 370 10^3/uL (130-400); RBC 4.82 10^6/uL (3.93-5.22); RDW 14.9 % (11.7-14.6); RDW-SD 41.6 fL; WBC 8.67 10^3/uL (4.4-10.8)
== END 2024-11-22 15:56 | disposition home or self-care (01) ==
LOC: NCHCN 15:55
PROVIDERS: PCP Internal Medicine; Visit Provider Nurse Practitioner Family
DX: Z13.0 Encounter for screening for diseases of the blood and blood-forming organs and certain disorders involving the immune mechanism (principal)
CPT/HCPCS: 85025

== ENCOUNTER 2024-11-23 10:25 | Outpatient (REF) | payer MEDICARE, BC, SELFPAY ==
[2024-11-24 23:03] LABS: Campylobacter PCR Negative (Negative); Salmonella PCR Negative (Negative); Shiga Toxin PCR Negative (Negative); Shigella/Enteroinvasive Ecoli Negative (Negative)
== END 2024-11-23 10:26 | disposition home or self-care (01) ==
LOC: NCHCN 10:25
PROVIDERS: PCP Internal Medicine; Visit Provider Nurse Practitioner Family
DX: R19.7 Diarrhea, unspecified (principal)
CPT/HCPCS: 87505; 82272

== ENCOUNTER 2024-11-25 22:16 | Outpatient (REF) | payer MEDICARE, BC, SELFPAY ==
[2024-11-29 14:46] LABS: Cryptosporidium, F Negative (Negative); Giardia Ag, F Negative (Negative)
== END 2024-11-25 22:17 | disposition home or self-care (01) ==
LOC: NCHCN 22:16
PROVIDERS: PCP Internal Medicine; Visit Provider Nurse Practitioner Family
DX: R19.7 Diarrhea, unspecified (principal)
CPT/HCPCS: 87328; 87329; 82272

== ENCOUNTER 2025-05-23 11:10 | Outpatient (REF) | payer MEDICARE, BC, SELFPAY ==
[2025-05-23 20:27] LABS: ALT 22 U/L (14-59); AST 23 U/L (15-37); Albumin 3.5 g/dL (3.4-5.0); Alkaline Phosphatase 122 U/L (46-116); Anion Gap 8.3 mmol/L (3-11); BUN 22 mg/dL (7-18); Bilirubin, Total 0.6 mg/dL (0.2-1.0); CO2 26.7 mmol/L (21.0-32.0); Calcium 8.9 mg/dL (8.5-10.1); Calculated LDL 31 mg/dL (<100); Chloride 105 mmol/L (98-107); Cholesterol 101 mg/dL (<200); Estimated GFR 74.44 (mL/min/1.73m2); Glucose 107 mg/dL (74-106); HDL Cholesterol 50 mg/dL (>or=50); Potassium 4.2 mmol/L (3.5-5.1); Sodium 140 mmol/L (136-145); Total Protein 7.0 g/dL (6.4-8.2); Triglyceride 104 mg/dL (<150)
== END 2025-05-23 11:11 | disposition home or self-care (01) ==
LOC: NCHCN 11:10
PROVIDERS: PCP Internal Medicine; Visit Provider Nurse Practitioner Family
DX: E78.5 Hyperlipidemia, unspecified (principal)
CPT/HCPCS: 80053; 80061